=== PATIENT | female | born 1935 | race Caucasian/White ===

== ENCOUNTER → 2016-08-11 | Outpatient (CLI) | payer OTHER ==
[~2016-08-11] MED LIST: ACIDTAB4 PO; DOCU1CAP39 PO; ENOX30P SQ; FLON0.053; HYDR-3580 PO; LOTE10TA2 PO; MUPI2OIN TOP; OMEP20TA PO; PROM25SU8 PO; SENN8.6T80 PO; SIMV20TA PO; SUPETAB30 PO
--- NOTE | 2016-08-15 08:58 | RSPPFT ---
DATE OF PROCEDURE: 08/11/16 COMMENTS: VOLUMES DYNAMIC: FVC and FEV1 normal. STATIC: TLC mildly increased; VTG and RV severely increased. FLOWS: FEV1% normal; FEF 25-75 normal. DIFFUSION: Normal. FLOW VOLUME LOOP: Normal configuration. IMPRESSION: Dynamic lung volumes and flows are normal. Static lung volumes are all increased though without airways obstruction it is hard to explain this as hyperinflation. There is some mild improvement post-bronchodilator. Diffusion capacity is normal. Airways resistance is also normal. Clinical correlation is required.
== END ==
LOC: HRSP 13:05
PROVIDERS: ATTEND Internal Medicine
DX: J44.9 Chronic obstructive pulmonary disease, unspecified (principal)
CPT/HCPCS: 94060; 94726; 94729

== ENCOUNTER 2017-10-15 17:13 | Observation (INO) | payer OTHER ==
[~2017-10-15] VITALS: Ht 154.9 cm; Wt 64.5 kg
[2017-10-15] VITALS (7 sets, daily range): BP systolic 136–156; BP diastolic 62–85; PULSE 71–82; RESP 16–20; TEMP 97.9; O2SAT 98–99
[2017-10-15] MEDS ORDERED: SODIUM CHLORIDE 0.9% FLUSH 10 ML FLUSH IVF PRN (19:30)
[2017-10-15] MEDS ORDERED: ASPIRIN 81 MG CHEW TAB PO ONE (19:30)
--- NOTE | 2017-10-15 19:58 | PD ---
HPI Chief Complaint: Cardiac Complaint Time Seen by Provider: 19:19 Travel History International Travel<30 days: No Contact w/Intl Traveler<30days: No Traveled to known affect area: No History of Present Illness HPI The patient is a 82-year-old female who presents emergency department for chest pain and shortness of breath. The patient states her symptoms started on October 09, 2017 when she went to a constitution party. The patient walked across the street to a country club when she developed heaviness in the arms and legs with shortness of breath. The patient had to sit down for approximately 10 minutes before she can continue on. The patient states that since the she has had chest pain is right-sided, occasionally sharp, occasionally pressure, and radiating to the neck. She also complains of exertional shortness of breath and orthopnea. The patient also complains of intermittent diaphoresis associated with her shortness of breath. She denies any nausea or vomiting. The patient does have a history of hypertension, hyperlipidemia, and significant family medical history for heart disease. The patient thinks she had a cardiac catheterization in either 1999 or [place], [place], that was negative. The patient is followed by her swimming instructor, Dr. Wesly German. She denies any stress test within the last 5 years. She does note exertional shortness of breath and chest pain are new over the last week. She does note intermittent swelling to the lower extremities for which she takes Lasix. Symptoms are moderate. PFSH Past Medical History Cancer: No Cardiovascular Problems: Yes (HX OF HEART MURMUR, ) Diabetes: No Endocrine: No Genitourinary: Yes (HX OF HEMORRHAGIC CYSTITIS 30 YRS AGO) Hepatitis: No Hiatal Hernia: No Immune Disorder: No Musculoskeletal: Yes (OSTEOARTHRITIS, OSTEOPOROSIS, SCOLIOSIS) Neurologic: No Psychiatric: No Reproductive: No Respiratory: Yes (BRONCHIECTASIS, COPD, SLEEP APNEA, PLEURISY X 2, PNEUMONIA X 6) Thyroid Disease: No Past Surgical History Abdominal Surgery: Yes (CHOLECYSTECTOMY 2002) AICD: No Body Medical Devices: RODS IN CERVICAL AND LUMBAR SPINE Eye Surgery: Yes (R EYE CATARACT REMOVAL 2010) Joint Replacement: Yes (L KNEE) Pacemaker: No Social History Tobacco Use: No Substance Use: No Allergies-Medications (Allergen,Severity, Reaction): Coded Allergies: doxycycline (Unverified Allergy, Intermediate, HIVES, 12/27/16) minocycline (Unverified Allergy, Intermediate, HIVES, 12/27/16) nortriptyline (Unverified Allergy, Intermediate, HIVES, 12/27/16) oxytetracycline (Unverified Allergy, Intermediate, HIVES, 12/27/16) tigecycline (Unverified Allergy, Intermediate, HIVES, 12/27/16) Reported Meds & Prescriptions Reported Meds & Active Scripts Active Reported Lasix (Furosemide) 20 Mg Tab 20 Mg PO DAILY Montelukast (Montelukast Sodium) 10 Mg Tab 10 Mg PO HS Flonase Nasal [place] (Fluticasone Nasal [place]) 50 Mcg/Act [place] 50 Mcg EACH NARE BID Gabapentin 300 Mg Cap 600 Mg PO HS Coq-10 (Coenzyme Q10 (Ubidecarenone)) 30 Mg Cap 30 Mg PO HS Zantac (Ranitidine HCl) 300 Mg Tab 300 Mg PO HS Omeprazole 20 Mg Tab 20 Mg PO DAILY Meloxicam 15 Mg Tab 15 Mg PO DAILY Atorvastatin (Atorvastatin Calcium) 40 Mg Tab 40 Mg PO HS Review of Systems Except as stated in HPI: all other systems reviewed are Neg General / Constitutional: No: Fever HENT: No: Lightheadedness Cardiovascular: Positive: Chest Pain or Discomfort, Diaphoresis, Dyspnea on exertion Respiratory: Positive: Shortness of Breath, No: Cough Gastrointestinal: No: Nausea, Vomiting Musculoskeletal: Positive: Weakness, Edema Neurologic: No: Dizziness Physical Exam Narrative GENERAL: Awake, alert, pleasant 82-year-old female who appears her stated age is in no acute respiratory distress. SKIN: Focused skin assessment warm/dry. HEAD: Atraumatic. Normocephalic. EYES: Pupils equal and round. No scleral icterus. No injection or drainage. ENT: No nasal bleeding or discharge. Mucous membranes pink and moist. NECK: Trachea midline. No JVD. CARDIOVASCULAR: Regular rate and rhythm. No murmur appreciated. RESPIRATORY: No accessory muscle use. Clear to auscultation. Breath sounds equal bilaterally. GASTROINTESTINAL: Abdomen soft, non-tender, nondistended. MUSCULOSKELETAL: No obvious deformities. No clubbing. No cyanosis. Trace edema. NEUROLOGICAL: Awake and alert. No obvious cranial nerve deficits. Motor grossly within normal limits. Normal speech. PSYCHIATRIC: Appropriate mood and affect; insight and judgment normal. Data Data Last Documented VS Vital Signs Date Time Temp Pulse Resp B/P (MAP) Pulse Ox O2 Delivery O2 Flow Rate FiO2 10/15/17 21:00 76 18 144/65 (91) 99 10/15/17 20:15 Room Air Orders Orders Electrocardiogram (10/15/17 ) B-Type Natriuretic Peptide (10/15/17 19:20) Ckmb (Isoenzyme) Profile (10/15/17 19:20) Complete Blood Count With Diff (10/15/17 19:20) Comprehensive Metabolic Panel (10/15/17 19:20) Magnesium (Mg) (10/15/17 19:20) Prothrombin Time / Inr (Pt) (10/15/17 19:20) Act Partial Throm Time (Ptt) (10/15/17 19:20) Troponin I (10/15/17 19:20) Ecg Monitoring (10/15/17 19:20) Bilateral Bp Monitoring (10/15/17 19:20) Iv Access Insert/Monitor (10/15/17 19:20) Oximetry (10/15/17 19:20) Oxygen Administration (10/15/17 19:20) Aspirin Chew (Aspirin Chew) (10/15/17 19:30) Sodium Chloride 0.9% Flush (Ns Flush) (10/15/17 19:30) Chest, Pa & Lat (10/15/17 19:20) Nitroglycerin 2% Oint (Nitroglycerin 2% (10/15/17 20:00) Labs Laboratory Tests Test 10/15/17 20:15 White Blood Count 5.8 TH/MM3 Red Blood Count 4.06 MIL/MM3 Hemoglobin 14.6 GM/DL Hematocrit 42.6 % Mean Corpuscular Volume 104.9 FL Mean Corpuscular Hemoglobin 35.9 PG Mean Corpuscular Hemoglobin Concent 34.2 % Red Cell Distribution Width 12.9 % Platelet Count 210 TH/MM3 Mean Platelet Volume 8.2 FL Neutrophils (%) (Auto) 61.1 % Lymphocytes (%) (Auto) 30.9 % Monocytes (%) (Auto) 6.3 % Eosinophils (%) (Auto) 0.8 % Basophils (%) (Auto) 0.9 % Neutrophils # (Auto) 3.6 TH/MM3 Lymphocytes # (Auto) 1.8 TH/MM3 Monocytes # (Auto) 0.4 TH/MM3 Eosinophils # (Auto) 0.0 TH/MM3 Basophils # (Auto) 0.1 TH/MM3 CBC Comment DIFF FINAL Differential Comment Prothrombin Time 10.1 SEC Prothromb Time International Ratio 1.0 RATIO Activated Partial Thromboplast Time 28.5 SEC Blood Urea Nitrogen 30 MG/DL Creatinine 1.13 MG/DL Random Glucose 83 MG/DL Total Protein 7.2 GM/DL Albumin 3.8 GM/DL Calcium Level 8.9 MG/DL Magnesium Level 1.8 MG/DL Alkaline Phosphatase 61 U/L Aspartate Amino Transf (AST/SGOT) 27 U/L Alanine Aminotransferase (ALT/SGPT) 26 U/L Total Bilirubin 0.4 MG/DL Sodium Level 140 MEQ/L Potassium Level 3.9 MEQ/L Chloride Level 105 MEQ/L Carbon Dioxide Level 24.1 MEQ/L Anion Gap 11 MEQ/L Estimat Glomerular Filtration Rate 46 ML/MIN Total Creatine Kinase 56 U/L Troponin I LESS THAN 0.02 NG/ML B-Type Natriuretic Peptide 37 PG/ML MDM Medical Decision Making Medical Screen Exam Complete: Yes Emergency Medical Condition: Yes Medical Record Reviewed: Yes Interpretation(s) EKG reveals normal sinus rhythm with a rate of 77. Mild ST elevation noted in V2 not seen in V1 or V3. Inverted T-wave in lead III. Last Impressions Chest X-Ray 10/15/17 192 Signed Impressions: CONCLUSION: Linear atelectasis or scarring at the bases. No effusion. Mild scoliosis. Laboratory Tests Test 10/15/17 20:15 White Blood Count 5.8 TH/MM3 Red Blood Count 4.06 MIL/MM3 Hemoglobin 14.6 GM/DL Hematocrit 42.6 % Mean Corpuscular Volume 104.9 FL Mean Corpuscular Hemoglobin 35.9 PG Mean Corpuscular Hemoglobin Concent 34.2 % Red Cell Distribution Width 12.9 % Platelet Count 210 TH/MM3 Mean Platelet Volume 8.2 FL Neutrophils (%) (Auto) 61.1 % Lymphocytes (%) (Auto) 30.9 % Monocytes (%) (Auto) 6.3 % Eosinophils (%) (Auto) 0.8 % Basophils (%) (Auto) 0.9 % Neutrophils # (Auto) 3.6 TH/MM3 Lymphocytes # (Auto) 1.8 TH/MM3 Monocytes # (Auto) 0.4 TH/MM3 Eosinophils # (Auto) 0.0 TH/MM3 Basophils # (Auto) 0.1 TH/MM3 CBC Comment DIFF FINAL Differential Comment Prothrombin Time 10.1 SEC Prothromb Time International Ratio 1.0 RATIO Activated Partial Thromboplast Time 28.5 SEC Blood Urea Nitrogen 30 MG/DL Creatinine 1.13 MG/DL Random Glucose 83 MG/DL Total Protein 7.2 GM/DL Albumin 3.8 GM/DL Calcium Level 8.9 MG/DL Magnesium Level 1.8 MG/DL Alkaline Phosphatase 61 U/L Aspartate Amino Transf (AST/SGOT) 27 U/L Alanine Aminotransferase (ALT/SGPT) 26 U/L Total Bilirubin 0.4 MG/DL Sodium Level 140 MEQ/L Potassium Level 3.9 MEQ/L Chloride Level 105 MEQ/L Carbon Dioxide Level 24.1 MEQ/L Anion Gap 11 MEQ/L Estimat Glomerular Filtration Rate 46 ML/MIN Total Creatine Kinase 56 U/L Troponin I LESS THAN 0.02 NG/ML B-Type Natriuretic Peptide 37 PG/ML Differential Diagnosis Differential diagnosis includes angina, acute coronary syndrome, STEMI, ischemic cardio myopathy, dilated cardia myopathy, congestive heart failure, pleural effusion, esophageal spasm, deconditioning, pulmonary embolism. Narrative Course IV was established, labs are drawn and sent, and the patient was placed on cardiac telemetry monitoring and continuous pulse oximetry monitoring. EKG was ordered and interpreted. The patient was administered aspirin and Nitropaste to the chest wall. Chest x-ray was obtained. Chest x-ray was negative. The patient's initial troponin is less than 0.02. BNP is 37. The patient does have chest pain with exertional shortness of breath and risk factors including hypertension, hyperlipidemia, and family medical history. The patient thinks her last stress test was at least 6 years ago and last cardiac cath at least 16 years ago. After discussion with the patient was agreed we would place her in the chest pain center for serial cardiac enzymes and further evaluation by cardiology. Physician Communication Physician Communication The patient will be a 23 hour observation to the chest pain center for serial cardiac enzymes and further evaluation by cardiology. Diagnosis Primary Impression: Chest pain Qualified Codes: R07.9 - Chest pain, unspecified Admitting Information Admitting Physician Requests: Observation Condition: Stable Maldonado Vora MD Oct 15, 2017 19:58
[2017-10-15] MEDS ORDERED: NITROGLYCERIN 2% OINT 1 GM PACKET TOPICAL ONE (20:00)
--- NOTE | 2017-10-15 20:05 | RADRPT ---
EXAM DATE: 10/15/2017 7:46 PM EDT AGE/SEX: 82 years / Female INDICATIONS: Chest pain, cough, and shortness of breath. CLINICAL DATA: This is the patient's initial encounter. Patient reports that signs and symptoms have been present for 2 weeks and indicates a pain score of 4/10. MEDICAL/SURGICAL HISTORY: Hypertension. Hypercholesterolemia. None. COMPARISON: No prior [place] exams available for comparison. FINDINGS: Linear atelectasis or scarring at the bases. No effusion. No pneumothorax. Mild scoliosis. Previous f ixation cervical spine and lumbar spine. CONCLUSION: Linear atelectasis or scarring at the bases. No effusion. Mild scoliosis. Electronically signed by: Taz Plunkett MD 10/15/2017 8:04 PM EDT
[2017-10-15] MEDS ORDERED: GABA300C5 PO (20:21)
[2017-10-15] MEDS ORDERED: ATOR40TA16 PO (20:21)
[2017-10-15] MEDS ORDERED: OMEP20TA93 PO (20:21)
[2017-10-15] MEDS ORDERED: MELO15TA20 PO (20:21)
[2017-10-15] MEDS ORDERED: COQ-30CA2 PO (20:21)
[2017-10-15] MEDS ORDERED: ZANT300T PO (20:21)
[2017-10-15] MEDS ORDERED: FLUT1SPR5 EACH NARE (20:21)
[2017-10-15 20:49] LABS: AUTOMATED NEUTROPHIL # 3.6 TH/MM3 (1.8-7.7); BASOPHIL # 0.1 TH/MM3 (0-0.2); BASOPHIL % 0.9 % (0.0-2.0); EOSINOPHIL % 0.8 % (0.0-4.0); HEMATOCRIT 42.6 % (35.0-46.0); HEMOGLOBIN 14.6 GM/DL (11.6-15.3); LYMPH % 30.9 % (9.0-44.0); LYMPHOCYTE # 1.8 TH/MM3 (1.0-4.8); MEAN CELL VOLUME 104.9 FL (80.0-100.0); MEAN CORPUSCULAR HEMOGLOBIN 35.9 PG (27.0-34.0); MEAN CORPUSCULAR HGB CONC 34.2 % (32.0-36.0); MEAN PLATELET VOLUME 8.2 FL (7.0-11.0); MONO % 6.3 % (0.0-8.0); MONOCYTE # 0.4 TH/MM3 (0-0.9); NEUT % 61.1 % (16.0-70.0); PLATELET COUNT 210 TH/MM3 (150-450); RED BLOOD COUNT 4.06 MIL/MM3 (4.00-5.30); RED CELL DISTRIBUTION WIDTH 12.9 % (11.6-17.2); WHITE BLOOD COUNT 5.8 TH/MM3 (4.0-11.0)
[2017-10-15 21:02] LABS: PROTHROMBIN TIME - PATIENT 10.1 SEC (9.8-11.6)
[2017-10-15] MEDS ORDERED: MONT10TA4 PO (21:04)
[2017-10-15 21:09] LABS: ALT (GPT) 26 U/L (10-53)
[2017-10-15] MEDS ORDERED: FURO1TAB62 PO (21:11)
[2017-10-15 21:14] LABS: ALBUMIN 3.8 GM/DL (3.4-5.0); ALKALINE PHOSPHATASE 61 U/L (45-117); AST (GOT) 27 U/L (15-37); BICARBONATE 24.1 MEQ/L (21.0-32.0); BLOOD UREA NITROGEN 30 MG/DL (7-18); CALCIUM 8.9 MG/DL (8.5-10.1); CHLORIDE 105 MEQ/L (98-107); CREATININE 1.13 MG/DL (0.50-1.00); GLOMERULAR FILTRATION RATE 46 ML/MIN (>89); GLUCOSE,RANDOM 83 MG/DL (74-106); MAGNESIUM 1.8 MG/DL (1.5-2.5); SODIUM (NA) 140 MEQ/L (136-145); TOTAL BILIRUBIN ADULT 0.4 MG/DL (0.2-1.0); TOTAL PROTEIN 7.2 GM/DL (6.4-8.2); TROPONIN I LESS THAN 0.02 NG/ML (0.02-0.05)
[2017-10-15] MEDS ORDERED: MORPHINE SULFATE 4 MG/ML INJ IV PUSH PRN (21:45)
[2017-10-15] MEDS ORDERED: SODIUM CHLORIDE 0.9% FLUSH 10 ML FLUSH IV FLUSH PRN (21:45)
[2017-10-15] MEDS ORDERED: ACETAMINOPHEN/HYDROcodone 325 MG/7.5 MG TAB PO PRN (21:45)
[2017-10-15] MEDS ORDERED: ONDANSETRON HCL 4 MG/2 ML VIAL IV PUSH PRN (21:45)
[2017-10-15] MEDS ORDERED: NITROGLYCERIN 0.4 MG SL 25 TABS/BTL SL PRN (21:45)
[2017-10-15] MEDS ORDERED: ACETAMINOPHEN 500 MG CPLT PO PRN (21:45)
[2017-10-15] MEDS ORDERED: ONDANSETRON ODT 4 MG TAB PO PRN (22:00)
[2017-10-16] LABS: TROPONIN I LESS THAN 0.02 NG/ML (0.02-0.05)
[2017-10-16 03:10] LABS: TROPONIN I LESS THAN 0.02 NG/ML (0.02-0.05)
[2017-10-16 03:21] VITALS: BP 109/56; PULSE 74; RESP 17; TEMP 97.6; O2SAT 96
[2017-10-16 04:37] VITALS: PULSE 73
[2017-10-16 07:06] VITALS: PULSE 68
[2017-10-16] MEDS ORDERED: ASPIRIN 325 MG TAB PO SCH (09:00)
[2017-10-16] MEDS ORDERED: RESP: ALBUTEROL 2.5 MG/IPRATROPIUM 0.5 MG NEB (PRN) INH (09:00)
[2017-10-16] MEDS ORDERED: SODIUM CHLORIDE 0.9% FLUSH 10 ML FLUSH IV FLUSH SCH (09:00)
[2017-10-16 09:32] VITALS: BP 148/108; PULSE 69; RESP 16; TEMP 98; O2SAT 97
--- NOTE | 2017-10-16 10:39 | HHI.HP ---
HPI Primary Care Physician Unknown Chief Complaint Chest pain and shortness of breath History of Present Illness This is a 82-year-old female with history of COPD and hyperlipidemia the presents to the ED to evaluated for chest discomfort that began . States has been intermittent. Describes as a heaviness. She is short of breath with it but states shortness of breath is not unusual for her. States that she has COPD. Currently denies chest discomfort and also denies at this time shortness of breath. States that she had a heart catheterization greater than 15 years ago and believes that was okay. Was following a plant protection guard locally but states she has not seen Dr. German in several years. Denies recent illness. Denies fevers or chills. Review of Systems General: Patient denies fevers, chills, and recent travel. HEENT: Patient denies headache, sore throat, difficulty swallowing. Cardiovascular: Has the chest discomfort as mentioned above. Denies sensation of heart beating rapidly or irregularly. No syncope. Respiratory: Chronic shortness of breath but also note increased shortness of breath when she had discomforts intermittently over the last several days. Denies inspirational chest discomfort. Denies coughing wheezing or hemoptysis. GI: Patient denies nausea, vomiting, diarrhea, abdominal pain, bloody stools. Musculoskeletal: Patient denies joint pain or edema. Denies calf pain or edema. Neurovascular: Patient denies numbness, tingling, weakness in extremities. Denies headache. Endocrine: Denies polyuria and polydipsia. Hematologic: Denies easy bruising. Skin: Denies rash or itching. Past Family Social History Allergies: Coded Allergies: doxycycline (Unverified Allergy, Intermediate, HIVES, 12/27/16) minocycline (Unverified Allergy, Intermediate, HIVES, 12/27/16) nortriptyline (Unverified Allergy, Intermediate, HIVES, 12/27/16) oxytetracycline (Unverified Allergy, Intermediate, HIVES, 12/27/16) tigecycline (Unverified Allergy, Intermediate, HIVES, 12/27/16) Past Medical History COPD and hyperlipidemia. Past Surgical History Cholecystectomy, left knee, neck and back surgery. Cataracts. Reported Medications Reported Meds & Active Scripts Active Reported Lasix (Furosemide) 20 Mg Tab 20 Mg PO DAILY Montelukast (Montelukast Sodium) 10 Mg Tab 10 Mg PO HS Flonase Nasal [place] (Fluticasone Nasal [place]) 50 Mcg/Act [place] 50 Mcg EACH NARE BID Gabapentin 300 Mg Cap 600 Mg PO HS Coq-10 (Coenzyme Q10 (Ubidecarenone)) 30 Mg Cap 30 Mg PO HS Zantac (Ranitidine HCl) 300 Mg Tab 300 Mg PO HS Omeprazole 20 Mg Tab 20 Mg PO DAILY Meloxicam 15 Mg Tab 15 Mg PO DAILY Atorvastatin (Atorvastatin Calcium) 40 Mg Tab 40 Mg PO HS Active Ordered Medications Current Medications Medications (Trade) Dose Ordered Sig/Dimitrios Route Start Time Stop Time Status Last Admin (NS Flush) 2 ml UNSCH PRN IV FLUSH 10/15/17 21:45 (NS Flush) 2 ml BID IV FLUSH 10/16/17 09:00 10/16/17 09:02 (Tylenol) 500 mg Q4H PRN PO 10/15/17 21:45 (Superior 7.5-325 Mg) 1 tab Q4H PRN PO 10/15/17 21:45 (Morphine Inj) 2 mg Q4H PRN IV PUSH 10/15/17 21:45 (Zofran Inj) 4 mg Q6H PRN IV PUSH 10/15/17 21:45 (Nitrostat Sl) 0.4 mg Q5M PRN SL 10/15/17 21:45 (Aspirin) 325 mg DAILY PO 10/16/17 09:00 10/16/17 09:02 (Zofran Odt) 4 mg Q6H PRN PO 10/15/17 22:00 (Lipitor) 40 mg HS PO 10/16/17 21:00 (Duoneb Neb) 1 ampule Q4HR NEB PRN INH 10/16/17 09:00 Family History There is family history of CAD. Social History Patient does not smoke drink alcohol or use illicit drugs. Physical Exam Vital Signs Vital Signs Date Time Temp Pulse Resp B/P (MAP) Pulse Ox O2 Delivery O2 Flow Rate FiO2 10/16/17 09:32 98.0 69 16 148/108 (121) 97 10/16/17 07:06 68 10/16/17 04:37 73 10/16/17 03:21 97.6 74 17 109/56 (73) 96 10/15/17 23:06 71 10/15/17 22:44 97.9 71 16 136/62 (86) 98 10/15/17 22:03 72 18 138/85 (102) 99 10/15/17 21:00 76 18 144/65 (91) 99 10/15/17 20:30 74 20 156/75 (102) 99 10/15/17 20:15 79 18 153/82 (105) 99 Room Air 10/15/17 20:15 100 Room Air 10/15/17 18:46 82 20 142/83 (102) 98 Physical Exam GENERAL: This is a well-nourished, well-developed patient, in no apparent distress. Patient speaks in clear complete sentences. Patient is pleasant. HEENT: Head is atraumatic and normocephalic. Neck is supple without lymphadenopathy and trachea is midline. No JVD or carotid bruits. CARDIOVASCULAR: Regular rate and rhythm without murmurs, gallops, or rubs. RESPIRATORY: Clear to auscultation. Breath sounds equal bilaterally. No wheezes , rales, or rhonchi. Chest wall is nontender. No use of accessory muscles. GASTROINTESTINAL: Abdomen is nontender, nondistended. Abdomen soft. No obvious pulsatile mass or bruit. No CVA tenderness. Strong femoral pulses bilaterally. Normal bowel sounds in all quadrants. MUSCULOSKELETAL: Patient is moving upper and lower extremities freely. No calf tenderness or edema, no Homans sign. Strong pulses in upper and lower extremities. NEUROLOGICAL: Patient is alert and oriented. Cranial nerves 2-12 are grossly intact. No focal deficits and speech is clear. SKIN: No rash and turgor is normal. Laboratory Laboratory Tests Test 10/15/17 20:15 10/15/17 23:11 10/16/17 02:30 White Blood Count 5.8 Red Blood Count 4.06 Hemoglobin 14.6 Hematocrit 42.6 Mean Corpuscular Volume 104.9 Mean Corpuscular Hemoglobin 35.9 Mean Corpuscular Hemoglobin Concent 34.2 Red Cell Distribution Width 12.9 Platelet Count 210 Mean Platelet Volume 8.2 Neutrophils (%) (Auto) 61.1 Lymphocytes (%) (Auto) 30.9 Monocytes (%) (Auto) 6.3 Eosinophils (%) (Auto) 0.8 Basophils (%) (Auto) 0.9 Neutrophils # (Auto) 3.6 Lymphocytes # (Auto) 1.8 Monocytes # (Auto) 0.4 Eosinophils # (Auto) 0.0 Basophils # (Auto) 0.1 CBC Comment DIFF FINAL Differential Comment Prothrombin Time 10.1 Prothromb Time International Ratio 1.0 Activated Partial Thromboplast Time 28.5 Blood Urea Nitrogen 30 Creatinine 1.13 Random Glucose 83 Total Protein 7.2 Albumin 3.8 Calcium Level 8.9 Magnesium Level 1.8 Alkaline Phosphatase 61 Aspartate Amino Transf (AST/SGOT) 27 Alanine Aminotransferase (ALT/SGPT) 26 Total Bilirubin 0.4 Sodium Level 140 Potassium Level 3.9 Chloride Level 105 Carbon Dioxide Level 24.1 Anion Gap 11 Estimat Glomerular Filtration Rate 46 Total Creatine Kinase 56 63 43 Troponin I LESS THAN 0.02 LESS THAN 0.02 LESS THAN 0.02 B-Type Natriuretic Peptide 37 Result Diagram: 10/15/17201410/15/172014 Imaging Last 48 hours Impressions Chest X-Ray 10/15/17 192 Signed Impressions: CONCLUSION: Linear atelectasis or scarring at the bases. No effusion. Mild scoliosis. Course EKGs a sinus rhythm, incomplete left bundle branch block that was on a prior EKG dated 2013. Caprini VTE Risk Assessment Caprini VTE Risk Assessment: Mod/High Risk (score >= 2) Caprini Risk Assessment Model Point Value = 1 Point Value = 2 Point Value = 3 Point Value = 5 Age 41-60 Minor surgery BMI > 25 kg/m2 Swollen legs Varicose veins or History of unexplained or recurrent spontaneous Oral contraceptives or hormone replacement Sepsis (< 1 month) Serious lung disease, including pneumonia (< 1 month) Abnormal pulmonary function Acute myocardial infarction Congestive heart failure (< 1 month) History of inflammatory bowel disease Medical patient at bed rest Age 61-74 Arthroscopic surgery Major open surgery (> 45 min) Laparoscopic surgery (> 45 min) Malignancy Confined to bed (> 72 hours) Immobilizing plaster cast Central venous access Age >= 75 History of VTE Family history of VTE Factor V Leiden Prothrombin [id number] Lupus anticoagulant Anticardiolipin antibodies Elevated serum homocysteine Heparin-induced thrombocytopenia Other congenital or acquired thrombophilia Stroke (< 1 month) Elective arthroplasty Hip, pelvis, or leg fracture Acute spinal cord injury (< 1 month) Prophylaxis Regimen Total Risk Factor Score Risk Level Prophylaxis Regimen 0-1 Low Early ambulation 2 Moderate Order ONE of the following: *Sequential Compression Device (SCD) *Heparin 5000 units SQ BID 3-4 Higher Order ONE of the following medications: *Heparin 5000 units SQ TID *Enoxaparin/Lovenox 40 mg SQ daily (WT < 150 kg, CrCl > 30 mL/min) *Enoxaparin/Lovenox 30 mg SQ daily (WT < 150 kg, CrCl > 10-29 mL/min) *Enoxaparin/Lovenox 30 mg SQ BID (WT < 150 kg, CrCl > 30 mL/min) AND/OR *Sequential Compression Device (SCD) 5 or more Highest Order ONE of the following medications: *Heparin 5000 units SQ TID (Preferred with Epidurals) *Enoxaparin/Lovenox 40 mg SQ daily (WT < 150 kg, CrCl > 30 mL/min) *Enoxaparin/Lovenox 30 mg SQ daily (WT < 150 kg, CrCl > 10-29 mL/min) *Enoxaparin/Lovenox 30 mg SQ BID (WT < 150 kg, CrCl > 30 mL/min) AND *Sequential Compression Device (SCD) Assessment and Plan Assessment and Plan * Chest pain: Patient has had serial cardiac enzymes and EKGs for ruling out purposes. She was seen by Dr. Hartman of cardiology in the chest pain center. She will undergo a Lexiscan and would be discharged home if her stress test is nonischemic with instructions to follow-up with PCP. Return to ED for interval issues. * Hyperlipidemia: Continue medication. * COPD: Patient will have DuoNeb's as needed and chest pain center. Resume medication at discharge. Patient is stable at this time. She is agreeable to this plan. Ian Jean-Baptiste Oct 16, 2017 10:39
[2017-10-16] MEDS ORDERED: REGADENOSON INJ 0.4 MG/5 ML SYR ONE (11:42)
[2017-10-16] MEDS ORDERED: CITRATED CAFFEINE (IV) 60 MG/3 ML VIAL ONE (11:49)
--- NOTE | 2017-10-16 12:55 | TR ---
Date Performed: 10/16/2017 Time Performed: 11:24:44 DOCTOR: Fernanda Hartman DRUG LIST: CLINICAL HISTORY: REASON FOR TEST: REASON FOR ENDING: OBSERVATION: CONCLUSION: Lexiscan stress test was performed under standard four minute protocol. Radionuclid e was injected one minute prior to ending the test. No electrocardiographic abormalities were present to suggest ischemia. Nuclear imaging and interpretation are pending. COMMENTS: No ischemia
[2017-10-16 15:10] VITALS: PULSE 77
--- NOTE | 2017-10-16 15:47 | RADRPT ---
EXAM DATE: 10/16/2017 1:05 PM EDT AGE/SEX: 82 years / Female INDICATIONS:Angina. . Chest pain. CLINICAL DATA: This is the patient's initial encounter. Patient reports that signs and symptoms have been present for 2 days and indicates a pain score of 4/10. MEDICAL/SURGICAL HISTORY: Hypertension. Chronic obstructive pulmonary disease. Cholecystectomy . Fusion, lumbar. COMPARISON: No prior [facility] exams available for comparison. DOSE: 8.6 mCi Tc 99m Myoview at rest 27.2 mCi [id number] at stress 0.4 mg Lexiscan STRESS SYMPTOMS: Nausea, dyspnea, and stomach pain. MEDICATION: 60 mg caffeine IV EJECTION FRACTION: 68 % TECHNIQUE: The patient underwent pharmacologic stress with infusion of prescribed dose. Continuous ECG tracing was monitored during stress. Gated SPECT imaging was performed after stress and conventi onal SPECT imaging was performed at rest. The examination was performed on a SPECT/CT scanner, both attenuation and non-corrected datasets were reviewed. FINDINGS: Distribution: The maximum perfused segment at stress is in the anterolateral wall. Perfusion Study: The pattern of perfusion at stress is within normal limits. Gated Study: There are intact wall motion and wall thickening without hypokinetic or dyskinetic segm ents. The ejection fraction is calculated at 68%. RISK CATEGORY: Low (<1% Annual Motality Rate) CONCLUSION: 1. Negative examination. Electronically signed by: Matty Peters MD 10/16/2017 3:45 PM EDT
--- NOTE | 2017-10-16 15:56 | HHI.DCPOC ---
Discharge Care Plan Diagnosis: (1) Chest pain (2) Hyperlipidemia (3) COPD (chronic obstructive pulmonary disease) Goals to Promote Your Health * To prevent worsening of your condition and complications * To maintain your health at the optimal level Directions to Meet Your Goals Take your medications as prescribed Follow your dietary instruction Follow activity as directed Keep your appointments as scheduled Take your immunizations and boosters as scheduled If your symptoms worsen call your PCP, if no PCP go to Urgent Care Center or Emergency Room Smoking is Dangerous to Your Health. Avoid second hand smoke Call the 24-hour hour crisis hotline for domestic abuse at Ian Jean-Baptiste Oct 16, 2017 15:56
--- NOTE | 2017-10-16 17:28 | EKG ---
Date Performed: 10/16/2017 Time Performed: 02:33:18 PTAGE: 82 years EKG: ECTOPIC ATRIAL RHYTHM POSSIBLE ANTERIOR MYOCARDIAL INFARCTION ABNORMAL RHYTHM ECG Since PREVIOUS TRACING , no significant change noted PREVIOUS TRACIN10/16/2017 00.04 DOCTOR: Fernanda Hartman Interpretating Date/Time 10/16/2017 17:26:56
--- NOTE | 2017-10-16 17:29 | EKG ---
Date Performed: 10/16/2017 Time Performed: 00:04:34 PTAGE: 82 years EKG: Sinus rhythm POSSIBLE ANTERIOR MYOCARDIAL INFARCTION ABNORMAL ECG Since PREVIOUS TRACING , no longer with IVCD PREVIOUS TRACIN10/15/2017 18.53 DOCTOR: Fernanda Hartman Interpretating Date/Time 10/16/2017 17:28:17
--- NOTE | 2017-10-16 17:31 | EKG ---
Date Performed: 10/15/2017 Time Performed: 18:53:23 PTAGE: 82 years EKG: Sinus rhythm POSSIBLE ANTERIOR MYOCARDIAL INFARCTION ABNORMAL ECG Since PREVIOUS TRACING , no significant change noted PREVIOUS TRACIN10/03/2013 08.37 DOCTOR: Fernanda Hartman Interpretating Date/Time 10/16/2017 17:30:22
[2017-10-16] MEDS ORDERED: ATORVASTATIN 40 MG TAB PO SCH (21:00)
== END 2017-10-16 17:51 | disposition home or self-care (01) ==
LOC: NEPE 17:13 → NEDA 21:32 → NEPFCDU 22:24
PROVIDERS: ADMIT Internal Medicine Cardiovascular Disease; ATTEND Internal Medicine Cardiovascular Disease
DX: R07.9 Chest pain, unspecified (principal); R06.01 Orthopnea; R61 Generalized hyperhidrosis; I10 Essential (primary) hypertension; E78.5 Hyperlipidemia, unspecified; M79.89 Other specified soft tissue disorders; M81.0 Age-related osteoporosis without current pathological fracture; M41.9 Scoliosis, unspecified; J44.9 Chronic obstructive pulmonary disease, unspecified; G47.30 Sleep apnea, unspecified; R09.1 Pleurisy; Z79.899 Other long term (current) drug therapy; Z82.49 Family history of ischemic heart disease and other diseases of the circulatory system; R05 Cough; J98.11 Atelectasis; R94.31 Abnormal electrocardiogram [ECG] [EKG]
CPT/HCPCS: 71046; 78452; 80053; 82550; 83735; 83880; 84484; 85025; 85610; 85730; 93005; 93017; 99285; A9502; G0378; J0706; J2785